=== PATIENT | male | born 1980 | race Caucasian/White ===

== ENCOUNTER 2021-01-16 20:42 | Emergency (ER) | payer OTHER ==
[2021-01-16] MEDS ORDERED: NA CHLORIDE 0.9% 1,000 ML ONE (21:24)
[2021-01-16 21:25] LABS: Absolute Lymphocytes (CBC) 1.2 K/uL (0.7-4.9); Basophils % 0.8 % (0-1.3); Hematocrit 44.8 % (39.6-49.0); Lymphocytes % 40.7 % (15.3-44.8); MPV 7.2 fL (7.6-11.3)
[2021-01-16 21:34] LABS: Protime INR 0.9
[2021-01-16 21:50] LABS: ALT/SGPT 20 U/L (12-78); AST/SGOT 21 U/L (15-37); Albumin 5.3 g/dL (3.4-5.0); Alkaline Phosphatase 72 U/L (45-117); BUN Blood Urea Nitrogen 9 mg/dL (7-18); Bicarbonate 29 mmol/L (21-32); Bilirubin Direct 0.2 mg/dL (0-0.2); Bilirubin Total 0.7 mg/dL (0.2-1.0); Glucose Level 90 mg/dL (74-106); Protein, Total 9.3 g/dL (6.4-8.2); Sodium Level 140 mmol/L (136-145)
--- NOTE | 2021-01-16 22:15 | ER ---
Nurse's Notes [facility] Name: Rod Storey Age: 40 yrs Sex: Male : 1980 Arrival Date: 01/16/2021 Time: 20:44 Bed 3 Private MD: Diagnosis: Syncope and collapse;Accidental overdose of prescription medication - Opiates and Benzodiazepines Presentation: 01/16 20:53 Chief complaint: EMS states: they were toned out for report of pt unresponsive on their bb arrival pt resp rate was 4 and father was attempting CPR although pt still had a pulse. Coronavirus screen: At this time, the client does not indicate any symptoms associated with coronavirus-19. Ebola Screen: No symptoms or risks identified at this time. Initial Sepsis Screen: Does the patient meet any 2 criteria? No. Patient's initial sepsis screen is negative. Does the patient have a suspected source of infection? No. Patient's initial sepsis screen is negative. Risk Assessment: Do you want to hurt yourself or someone else? Patient reports no desire to harm self or others. Note pt took his home medication of Ativan 2 mg and hydromorphone 20 mg and said he had not eaten. Onset of symptoms was January 16, 2021. Care prior to arrival: Medication(s) given: Narcan 1 mg IV initiated. 18 GA, in the right antecubital area. 20:53 Method Of Arrival: EMS: [facility] bb 20:53 Acuity: LORIE 2 bb Historical: - Allergies: 20:58 No Known Allergies; bb - Home Meds: 20:58 Ativan Oral [Active]; Hydromorphone Oral [Active]; bb - PMHx: 20:58 Anxiety; Autism; Hypertension; bb - Immunization history:: Adult Immunizations up to date. - Social history:: Smoking status: Patient denies any tobacco usage or history of. Patient uses alcohol, occasionally. Patient/guardian denies using street drugs. - Family history:: not pertinent. - Hospitalizations: : No recent hospitalization is reported. Screenin:00 Abuse screen: Denies threats or abuse. Nutritional screening: No deficits noted. jb4 Tuberculosis screening: No symptoms or risk factors identified. Fall Risk None identified. Assessment: 21:00 General: Appears in no apparent distress. comfortable, Behavior is calm, cooperative, jb4 appropriate for age. Pain: Denies pain. Neuro: Level of Consciousness is awake, alert, obeys commands, Oriented to person, place, time, situation. Cardiovascular: Patient's skin is warm and dry. Respiratory: Airway is patent Respiratory effort is even, unlabored, Respiratory pattern is regular, symmetrical, Breath sounds are clear bilaterally. GI: No signs and/or symptoms were reported involving the gastrointestinal system. : No signs and/or symptoms were reported regarding the genitourinary system. EENT: No signs and/or symptoms were reported regarding the EENT system. Derm: Skin is intact, Skin is pink, warm \T\ dry. Musculoskeletal: Circulation, motion, and sensation intact. Range of motion: intact in all extremities. 22:00 Reassessment: Patient appears in no apparent distress at this time. Patient and/or jb4 family updated on plan of care and expected duration. Pain level reassessed. Patient is alert, oriented x 3, equal unlabored respirations, skin warm/dry/pink. 22:52 Reassessment: mother contacted and they will come to pick him up. mg2 Vital Signs: 20:46 BP 140 / ???; Pulse 94; Resp 18; Temp 98; Pulse Ox 100% on R/A; mg2 20:53 BP 140 / 94; Pulse 84; Resp 16 S; Pulse Ox 100% on R/A; Weight 68.04 kg (R); Height 5 bb ft. 10 in. (177.80 cm) (R); Pain 0/10; 20:53 Body Mass Index 21.52 (68.04 kg, 177.80 cm) bb ED Course: 20:44 Patient arrived in ED. mw2 20:46 Yrn Miguel MD is Attending Physician. rn 20:57 Triage completed. bb 20:58 Arm band placed on Patient placed in an exam room, on a stretcher, on teletypesetter monitor, bb on pulse oximetry. 21:00 Patient has correct armband on for positive identification. Fall risk band placed. jb4 Placed in gown. Bed in low position. Call light in reach. Side rails up X 1. Pulse ox on. NIBP on. 21:42 Dennis Jaimes, TREY is Primary Nurse. jb4 22:52 No provider procedures requiring assistance completed. IV discontinued, intact, mg2 bleeding controlled, No redness/swelling at site. Pressure dressing applied. Administered Medications: 21:02 Drug: NS 0.9% 1000 ml Route: IV; Rate: 1000 ml; Site: right antecubital; mg2 22:50 Follow up: Response: No adverse reaction; IV Status: Completed infusion; IV Intake: mg2 1000ml Intake: 22:50 IV: 1000ml; Total: 1000ml. mg2 Outcome: 22:15 Discharge ordered by . rn 22:52 Discharged to home via wheelchair. mg2 22:52 Condition: stable 22:52 Discharge instructions given to patient, Instructed on discharge instructions, follow up and referral plans. Demonstrated understanding of instructions, follow-up care. 22:53 Patient left the ED. mg2 Signatures: Lelo Santacruz RN RN Yrn Roberts MD MD rn Bryson, James, RN RN jb4 Blu Paredes mw2 Mc Lucero RN RN mg2 Corrections: (The following items were deleted from the chart) 21:21 20:46 BP 140 / ???; Pulse 94bpm; Resp 83bpm; Pulse Ox 100% RA; Temp 18F; mg2 mg2
--- NOTE | 2021-01-16 22:16 | EDPHYS ---
Physician Documentation [facility] Name: Rod Storey Age: 40 yrs Sex: Male : 1980 Arrival Date: 01/16/2021 Time: 20:44 Bed 3 Private MD: ED Physician Yrn Miguel HPI: 01/16 21:47 This 40 yrs old Male presents to ER via EMS with complaints of syncope. rn 21:47 The patient has experienced syncope. Onset: The symptoms/episode began/occurred just rn prior to arrival. Duration: This was a single episode. Associated injury: The patient did not suffer any apparent associated injury. Associated signs and symptoms: Pertinent positives: dizziness, lightheadedness, Pertinent negatives: abdominal pain, chest pain, combativeness, diaphoresis, headache, palpitations, seizure, shortness of breath, vertigo. Current symptoms: Currently, the patient is not experiencing any symptoms, the patient feels back to baseline. It is unknown whether or not the patient has had similar symptoms in the past. The patient has not recently seen a physician. Reports hadnt had anything to eat today, took double his normal dose of dilaudid and ativan, felt lightheaded approx 20 min after taking meds, then possibly had syncopal episode. Now feels fine. Denies any preceding chest pain or sob. No recent vomiting/diarrhea/abd pain. No chest pain/palpitations. Reports also had a little ETOH. Denies overdose for suicidal intentions. . Historical: - Allergies: 20:58 No Known Allergies; bb - Home Meds: 20:58 Ativan Oral [Active]; Hydromorphone Oral [Active]; bb - PMHx: 20:58 Anxiety; Autism; Hypertension; bb - Immunization history:: Adult Immunizations up to date. - Social history:: Smoking status: Patient denies any tobacco usage or history of. Patient uses alcohol, occasionally. Patient/guardian denies using street drugs. - Family history:: not pertinent. - Hospitalizations: : No recent hospitalization is reported. ROS: 21:47 Constitutional: Negative for fever, chills, and weight loss, Eyes: Negative for injury, rn pain, redness, and discharge, Neck: Negative for injury, pain, and swelling, Cardiovascular: Negative for chest pain, palpitations, and edema, Respiratory: Negative for shortness of breath, cough, wheezing, and pleuritic chest pain, Abdomen/GI: Negative for abdominal pain, nausea, vomiting, diarrhea, and constipation, Back: Negative for injury and pain, MS/Extremity: Negative for injury and deformity, Skin: Negative for injury, rash, and discoloration, Neuro: Negative for headache, weakness, numbness, tingling, and seizure. Exam: 21:47 Constitutional: This is a well developed, well nourished patient who is awake, alert, rn and in no acute distress. Head/Face: Normocephalic, atraumatic. Eyes: Pupils equal round and reactive to light, extra-ocular motions intact. Lids and lashes normal. Conjunctiva and sclera are non-icteric and not injected. Cornea within normal limits. Periorbital areas with no swelling, redness, or edema. Neck: Trachea midline, no masses palpated, and no cervical lymphadenopathy. Supple, full range of motion without nuchal rigidity, or vertebral point tenderness. No Meningismus. Cardiovascular: Regular rate and rhythm. No pulse deficits. Respiratory: No increased work of breathing, no retractions or nasal flaring. Abdomen/GI: soft, non-tender Skin: Warm, dry MS/ Extremity: Pulses equal, no cyanosis. Neuro: Awake and alert, GCS 15, oriented to person, place, time, and situation. Cranial nerves II-XII grossly intact. Motor strength 5/5 in all extremities. Sensory grossly intact. Cerebellar exam normal. 22:07 ECG was reviewed by the Attending Physician. rn Vital Signs: 20:46 BP 140 / ???; Pulse 94; Resp 18; Temp 98; Pulse Ox 100% on R/A; mg2 20:53 BP 140 / 94; Pulse 84; Resp 16 S; Pulse Ox 100% on R/A; Weight 68.04 kg (R); Height 5 bb ft. 10 in. (177.80 cm) (R); Pain 0/10; 20:53 Body Mass Index 21.52 (68.04 kg, 177.80 cm) bb MDM: 20:46 Patient medically screened. rn 22:13 Differential Diagnosis: cardiac arrhythmia, emotional response, vasovagal episode, rn overdose on prescription medication either intentional or accidental. Data reviewed: vital signs, nurses notes, lab test result(s), EKG, and as a result, I will discharge patient. Counseling: I had a detailed discussion with the patient and/or guardian regarding: the historical points, exam findings, and any diagnostic results supporting the discharge/admit diagnosis, lab results, the need for outpatient follow up, to return to the emergency department if symptoms worsen or persist or if there are any questions or concerns that arise at home. Response to treatment: the patient's symptoms have markedly improved after treatment, the patient's condition has returned to base line, the patient is now symptom free, and as a result, I will discharge patient. Special discussion: I discussed with the patient/guardian in detail that at this point there is no indication for admission to the hospital. It is understood, however, that if the symptoms persist or worsen the patient needs to return immediately for re-evaluation. Based on the history and exam findings, there is no indication for further emergent testing or inpatient evaluation. I discussed with the patient/guardian the need to see the primary care provider for further evaluation of the symptoms. ED course: Pt at baseline, no acute findings on bloodwork or ECG to suggest arrhythmia or cardiac event, most likely accidental overdose on medication, is wide awake, normal neuro exam, stable vitals, again denies suicidal ideation or intention to harm himself. Will dc home. . 01/16 20:46 Order name: Acetaminophen mg2 01/16 20:46 Order name: Basic Metabolic Panel mg2 01/16 20:46 Order name: CBC with Diff mg2 01/16 20:46 Order name: ETOH Level; Complete Time: 22: mg2 01/16 20:46 Order name: Hepatic Function; Complete Time: : mg2 01/16 20:46 Order name: PT-INR; Complete Time: 22: mg2 01/16 20:46 Order name: Ptt, Activated; Complete Time: 22: mg2 01/16 20:46 Order name: Salicylate; Complete Time: 22: mg2 01/16 20:46 Order name: Acetaminophen Level; Complete Time: 22: EDMS 01/16 20:46 Order name: Basic Metabolic Panel; Complete Time: 22: EDMS 01/16 20:46 Order name: CBC with Automated Diff; Complete Time: 22: EDMS 01/16 21:16 Order name: Glucose, Ancillary Testing; Complete Time: : EDMS 01/16 20:46 Order name: EKG; Complete Time: 20:47 mg2 01/16 20:46 Order name: EKG - Nurse/Tech; Complete Time: 20:49 mg2 01/16 20:46 Order name: IV Saline Lock; Complete Time: 21:02 mg2 01/16 20:46 Order name: Labs collected and sent mg2 01/16 20:55 Order name: Glucose Level; Complete Time: 21:09 rn EC:07 Rate is 83 beats/min. Rhythm is regular. QRS [place] is Normal. [place] interval is normal. QRS rn interval is normal. QT interval is normal. No Q waves. T waves are Normal. No ST changes noted. Clinical impression: Normal ECG. Interpreted by me. Reviewed by me. Administered Medications: 21:02 Drug: NS 0.9% 1000 ml Route: IV; Rate: 1000 ml; Site: right antecubital; mg2 22:50 Follow up: Response: No adverse reaction; IV Status: Completed infusion; IV Intake: mg2 1000ml Disposition: 01/16/21 22:15 Discharged to Home. Impression: Syncope and collapse, Accidental overdose of prescription medication - Opiates and Benzodiazepines. - Condition is Stable. - Discharge Instructions: Opioid Overdose, Benzodiazepine Overdose, Syncope. - Medication Reconciliation Form, Thank You Letter, Antibiotic Education, Prescription Opioid Use form. - Follow up: Private Physician; When: As needed; Reason: Recheck today's complaints, Re-evaluation by your physician. - Problem is new. - Symptoms have improved. Signatures: Dispatcher [employer] EDMS Lelo Santacruz RN RN bb Nieto, Roman, MD MD rn Gardose, Michele, RN RN mg2 Corrections: (The following items were deleted from the chart) 20:55 20:46 Suicide Screening ([place]) ordered. mg2 rn 22:53 22:15 01/16/2021 22:15 Discharged to Home. Impression: Syncope and collapse; Accidental mg2 overdose of prescription medication - Opiates and Benzodiazepines. Condition is Stable. Forms are Medication Reconciliation Form, Thank You Letter, Antibiotic Education, Prescription Opioid Use. Follow up: Private Physician; When: As needed; Reason: Recheck today's complaints, Re-evaluation by your physician. Problem is new. Symptoms have improved. rn
[2021-01-16 23:33] VITALS: TEMP 98; O2SAT 100
[2021-01-16 23:35] VITALS: BP 140/94
--- NOTE | 2021-01-17 11:18 | EKG ---
Test Date: 2021-01-16 Test Time: 20:46:13 [place]ning Processor: VICTORIANO MEASUREMENT RESULTS: Intervals: Rate: 83 ND: 158 QRSD: 80 QT: 390 QTc: 458 [place]: P: 64 ND: 158 QRS: 53 T: 58 INTERPRETIVE STATEMENTS: Normal sinus rhythm Normal ECG Compared to ECG 11/15/2016 11:47:36 No significant changes Electronically Signed On 01-17-21 11:17:06 CDT by Nikko Osorio
== END 2021-01-16 22:53 | disposition home or self-care (01) ==
LOC: ER 20:42
DX: T40.601A Poisoning by unspecified narcotics, accidental (unintentional), initial encounter (principal); T42.4X1A Poisoning by benzodiazepines, accidental (unintentional), initial encounter; R55 Syncope and collapse; I10 Essential (primary) hypertension; F41.9 Anxiety disorder, unspecified; F84.0 Autistic disorder
CPT/HCPCS: 93005; 85025; 80048; 36415; 80320; 80329 ×2; 85610; 82947; 80076; 85730; J7030; 96360; 96361; 99283

== ENCOUNTER 2024-02-28 10:33 | Emergency (ER) | payer OTHER ==
[2024-02-28] MEDS ORDERED: ACETAMINOPHEN 500 MG TAB ONE (11:26)
[2024-02-28] MEDS ORDERED: methocarbamoL 500 MG TAB ONE (11:26)
[2024-02-28] MEDS ORDERED: KETOROLAC 30 MG/ML INJ ONE (11:27)
--- NOTE | 2024-02-28 11:54 | RAD REPORT ---
EXAM DESCRIPTION: RAD - Shoulder Right 2 View - 02/28/2024 11:26 am CLINICAL HISTORY: Right shoulder pain FINDINGS: Mildly to moderately displaced fracture distal right clavicle. No dislocation
--- NOTE | 2024-02-28 11:54 | RAD REPORT ---
EXAM DESCRIPTION: RAD - Clavicle Right - 02/28/2024 11:26 am CLINICAL HISTORY: Right shoulder pain FINDINGS: Mildly to moderately displaced fracture distal right clavicle. No dislocation
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
[2024-02-28 12:33] VITALS: TEMP 99; O2SAT 100
[2024-02-28 12:51] VITALS: BP 119/91
== END 2024-02-28 12:25 | disposition home or self-care (01) ==
LOC: ER 10:33
DX: S42.031A Displaced fracture of lateral end of right clavicle, initial encounter for closed fracture (principal)
CPT/HCPCS: 96372; 99284